=== PATIENT | female | born 1925 | race Caucasian/White ===

== ENCOUNTER 2016-11-08 12:12 | Inpatient (IN) | payer MEDICARE, BC ==
--- NOTE | ~2016-11-08 | CR72 ---
[facility] A Service of [facility] & [facility] RADIOLOGY TEXT RESULTS PATIENT: BASIL DEAN LOCATION: [place] [address] : [birth year] UNIT #: [id number] AGE: [address]: Leticia Bernstein MD SEX: F ORDER DR: [id number] [facility] [address] [place], [place] [address] [id number] MR#: [id number] Acc #: [id number] NAME: BASIL DEAN. : 1925 SEX: F STUDY DATE/TIME: 11/08/2016 11:11 UNIT: [facility] ROOM: STUDY DESCRIPTION: CR Chest Single View Portable Attending Physician: Fredy Boyd M.D. Ordering Physician: Ed Doctor [id number] [facility] Primary Care Physician: Renée Ramesh M.D. MEDICAL IMAGING REPORT This report is preliminary unless electronic signature is present EXAM Portable chest INDICATIONS 89-year-old female with shortness of breath, weakness for 1 day. COMPARISON 10/29/2016 FINDINGS Low-volume inspiration. No acute infiltrate. Heart size stable. Atherosclerotic calcification of the aorta. IMPRESSION No active disease. Dictated by... Giovany Fernandez M.D. THIS IS AN ELECTRONICALLY VERIFIED REPORT Giovany Fernandez M.D. at 11/08/2016 4:52 PM Caroline TD: 11/08/2016 12:00 JOB #: [id number] MEDICAL IMAGING REPORT Page 1 of 1 COPY
--- NOTE | ~2016-11-08 | EKG ---
PATIENT: BASIL DEAN UNIT #: [id number] Ventricular Rate: 73 BPM Atrial Rate: 73 BPM P-R Interval: 142 ms QRS Duration: 68 ms Q-T Interval: 386 ms QTC Calculation(Bezet): 425 ms Calculated R [place]: 61 degrees Calculated T [place]: 103 degrees Diagnosis Line: Normal sinus rhythm Diagnosis Line: Normal ECG Diagnosis Line: When compared with ECG of 13-NOV-2012 16:56, Diagnosis Line: No significant change was found Diagnosis Line: Confirmed by ARIELLA HARMON MD ([id number]) on 11/09/2016 Diagnosis Line: 11:14:25 PM INTERPRETING MD: EDEN VALENCIA
--- NOTE | ~2016-11-08 | EKG ---
PATIENT: BASIL DEAN UNIT #: [id number] Ventricular Rate: 65 BPM Atrial Rate: 65 BPM P-R Interval: 192 ms QRS Duration: 88 ms Q-T Interval: 422 ms QTC Calculation(Bezet): 438 ms P [place]: 57 degrees Calculated R [place]: 16 degrees Calculated T [place]: 96 degrees Diagnosis Line: Normal sinus rhythm Diagnosis Line: Abnormal QRS-T angle, consider primary T wave Diagnosis Line: abnormality Diagnosis Line: Abnormal ECG Diagnosis Line: When compared with ECG of 08-NOV-2016 10:10, Diagnosis Line: (unconfirmed) Diagnosis Line: No significant change was found Diagnosis Line: Confirmed by ARIELLA HARMON MD ([id number]) on 11/09/2016 Diagnosis Line: 11:29:27 PM INTERPRETING MD: EDEN VALENCIA
--- NOTE | ~2016-11-08 | HP ---
Unit #: [id number] #: [id number] Patient: BASIL DEAN [id number] [address] [place], [place] [address] [id number] I MR#: [id number] NAME: BASIL DEAN. ROOM: 548 Age: 89 Sex: F Admission Date: 11/08/2016 : 1925 Attending Physician: Leticia Bernstein M.D. Primary Care Physician: Renée Ramesh M.D. HISTORY AND PHYSICAL CHIEF COMPLAINT Intractable weakness and fatigue. HISTORY OF PRESENT ILLNESS The patient is a pleasant 89-year-old female who basically has been sick for the past one week illness, with some shortness of air, some cough, and some fever over two weeks ago. She presented to see her healthcare provider and was given some Robitussin and managed conservatively. She developed more weakness and difficulty walking. She denied any nausea or vomiting and no chest pain, headache, shortness of breath, or difficulty breathing. She does have a cough on occasion. Workup so far yielded a urinalysis which was positive for nitrites and leukocyte esterase. She states that she has been treated for a urinary tract infection recently. REVIEW OF SYSTEMS She does have a headache, some nausea, positive weakness, and difficulty walking. PAST MEDICAL HISTORY 1. Hypertension. 2. Hypothyroidism. 3. Kidney disease. 4. Coronary artery disease. PAST SURGICAL HISTORY 1. Hysterectomy. 2. Back surgery. 3. Cardiac stents. ALLERGIES CEPHALOSPORINS. SOCIAL HISTORY No tobacco use, alcohol use, or illicit drug use. FAMILY HISTORY Negative. PHYSICAL EXAMINATION GENERAL: She was comfortable but acute on chronically ill. VITAL SIGNS: Blood pressure 121/52, pulse 74, respiratory rate 24, and temperature 98. HEENT: Pupils were equal and reactive to light and accommodation. Unit #: [id number] #: [id number] Patient: BASIL DEAN NECK: Supple without thyromegaly. CARDIOVASCULAR: First and second heart sounds only. transmitted sounds. ABDOMEN: Full. Moves with respiration. Soft, nondistended, and nontender. EXTREMITIES: Mild bilateral lower extremity edema. SKIN: Warm and dry with no rashes. CENTRAL NERVOUS SYSTEM: Alert and oriented x3. Moves all her limbs spontaneously. DIAGNOSTIC STUDIES LABORATORY: Chemistries with glucose of 107, BUN and creatinine 23 and 1, and sodium and potassium 136 and 4.7. CBC with WBC 9, hemoglobin and hematocrit 16.7 and 50, and platelet count of 230,000. Urinalysis showed leukocyte esterase 3+, nitrites positive, protein 1+, and WBCs 100-200. ASSESSMENT AND PLAN 1. Urinary tract infection. She is currently on Zosyn 3.375 grams q.6. Patient does have allergy to cephalosporins. Urine culture is pending at this time. 2. Intractable weakness and fatigue. 3. Atypical chest pain. Will get one more set of cardiac markers. Cardiac markers x2 sets negative at this time. 4. Deep venous thrombosis prophylaxis. Put her on sequential compression devices while in bed. For gastrointestinal prophylaxis, put her on Protonix. 5. Repeat a CBC, BMP, and EKG in the morning. 1. Dictated by Leticia Bernstein M.D. OO/am TD: 11/08/2016 20:45 JOB #: [id number] HISTORY AND PHYSICAL Page 1 of 1 X Leticia Bernstein MD HISTORY AND PHYSICAL
--- NOTE | ~2016-11-08 | DS ---
Unit #: [id number] #: [id number] Patient: BASIL DEAN [id number] [address] [address] [id number] I MR#: [id number] NAME: BASIL DEAN. ROOM: 548 Age: 89 Sex: F Admission Date: 11/08/2016 : 1925 Discharge Date: 11/11/2016 Attending Physician: Leticia Bernstein M.D. Primary Care Physician: Renée Ramesh M.D. DISCHARGE SUMMARY FINAL DIAGNOSES 1. Urinary tract infection secondary to Escherichia coli. 2. Intractable weakness. SECONDARY DIAGNOSES 1. Hypertension. 2. Hypothyroidism. 3. Kidney disease. 4. Coronary artery disease. HOSPITAL COURSE The patient is a pleasant, 89-year-old female who was admitted for extreme fatigue and intractable weakness. She is admitted for chest pain for which troponins were negative. She had a UTI which grew E. coli for which she was treated with Zosyn. Initially, we felt that she was a little septic as she had an elevated lactic acid level. She was evaluated and suitable and stable for discharge. I will discharge the patient in stable condition. MEDICATION ON DISCHARGE 1. Norvasc 5 mg p.o. daily. 2. Toprol XL 50 mg p.o. daily. 3. Lasix 20 mg p.o. daily. 4. Zestril 10 mg p.o. daily. 5. Plavix 75 mg p.o. daily. 6. Protonix 40 mg p.o. daily. 7. Augmentin 875 mg p.o. b.i.d. for seven days. 8. Florastor 250 mg p.o. b.i.d. Time spent coordinating discharge about 22 minutes. Dictated by... Arielle Bloom TD: 11/11/2016 09:57 JOB #: [id number] Unit #: [id number] #: [id number] Patient: BASIL DEAN DISCHARGE SUMMARY Page 1 of 1 X Leticia Bernstein MD DISCHARGE SUMMARY
[2016-11-08 11:53] LABS: POC - CKMB 1.2 ng/mL (0.0-7.9); POC - TROPONIN <0.05 ng/mL (<=0.05)
[~2016-11-08 12:12] MED LIST: AGGRENOX PO; ANTIVERT PO; ASPIRIN PO; ASPIRIN81 M1 PO; BIAXIN PO; LISINOPRIL PO; LOTREL 5/10 MG1 CAP PO; MEDROL4 MG/DOSE- PO; PLAVIX PO; TOPROL XL PO; ULTRAM PO
[2016-11-08 12:23] LABS: BASOPHIL% 0.1 % (0-2.5); EOSINOPHIL% 0.4 % (0.0-7.0); HEMOGLOBIN 16.7 gm/dL (12.0-16.0); LYMPHOCYTE# 2.1 X10e3 (1.0-3.5); LYMPHOCYTE% 23.3 % (17.0-45.0); MEAN CELL VOLUME 85.5 FL (83-96); MEAN CORPUSCULAR HEMOGLOBIN 28.6 PG (28-34); MEAN CORPUSCULAR HGB CONC 33.5 g/dL (30-36); MEAN PLATELET VOLUME 8.7 FL (6.5-11.5); MONOCYTE# 0.9 X10e3 (0-1.0); MONOCYTE% 10.2 % (3.0-12.0); NEUTROPHIL# 5.9 X10e3 (1.5-7.1); PLATELET COUNT 230 X10e3 (140-420); RED BLOOD COUNT 5.85 X10e (3.90-5.30); RED CELL DISTRIBUTION WIDTH 13.9 % (11.0-15.5)
[2016-11-08 12:24] LABS: DIFF IND YES
[2016-11-08] MEDS ORDERED: TOPROL XL 50 MG50 MG PO (12:42)
[2016-11-08] MEDS ORDERED: CLOPIDOGREL75 MG PO (12:43)
[2016-11-08] MEDS ORDERED: AMLODIPINE BESYL5 MG PO (12:43)
[2016-11-08] MEDS ORDERED: LISINOPRIL10 MG PO (12:43)
[2016-11-08] MEDS ORDERED: LASIX20 MG PO (12:44)
[2016-11-08 12:45] LABS: URINE SOURCE CLEAN CATCH
[2016-11-08 13:02] LABS: ALBUMIN SERUM 4.3 g/dL (3.5-5.0); BILIRUBIN, DIRECT 0.2 mg/dL (0.0-0.2); BILIRUBIN,INDIRECT 0.7 mg/dL (0.0-0.9); BILIRUBIN,TOTAL 0.9 mg/dL (0.2-2.0); CALCIUM SERUM 9.5 mg/dL (8.4-10.2); GLOM FILT RATE Estimated 49.9 mL/min (>60); POTASSIUM 4.7 mmol/L (3.5-5.1); PROTEIN TOTAL SERUM 7.6 g/dL (6.0-8.3)
[2016-11-08 13:05] LABS: URINE APPEARANCE CLOUDY; URINE BLOOD 1+ (NEG); URINE COLOR YELLOW; URINE GLUCOSE NORM (NORM); URINE KETONE NEG (NEG); URINE LEUKOCYTE ESTERASE 3+ (NEG); URINE NITRATE POS (NEG); URINE PROTEIN 1+ (NEG); URINE UROBILINOGEN NORM (NORM)
[2016-11-08 13:08] LABS: INFLUENZA A NEG (NEG); INFLUENZA B NEG (NEG)
[2016-11-08 13:11] LABS: PLATELET ESTIMATE NORMAL (NORMAL); RBC NORMAL YES
[2016-11-08 13:14] LABS: URINE BILIRUBIN NEG (NEG)
[2016-11-08 13:17] LABS: CULTURE INDICATED? YES; URINE AMORPHOUS SEDIMENT AMORP URATES; URINE BACTERIA AUWI 3+ (NEGATIVE); URINE SQUAMOUS EPITHELIAL CELL FEW /[HPF]; UWBCS1 AUWI 100-200 (0-5)
[2016-11-08 13:49] LABS: POC - CKMB <1.0 ng/mL (0.0-7.9); POC - TROPONIN <0.05 ng/mL (<=0.05)
[2016-11-08 20:34] LABS: CK TOTAL 34 IU/L (26-140)
[2016-11-09 05:41] LABS: HEMATOCRIT 40.9 % (35.0-45.0); MEAN CORPUSCULAR HEMOGLOBIN 28.5 PG (28-34); MEAN CORPUSCULAR HGB CONC 33.6 g/dL (30-36); MEAN PLATELET VOLUME 8.1 FL (6.5-11.5); RED BLOOD COUNT 4.81 X10e (3.90-5.30); RED CELL DISTRIBUTION WIDTH 13.9 % (11.0-15.5); WHITE BLOOD COUNT 6.6 X10e3 (4.0-10.5)
[2016-11-09 05:47] LABS: HEMOGLOBIN 13.7 gm/dL (12.0-16.0)
[2016-11-09 06:16] LABS: CALCIUM SERUM 8.6 mg/dL (8.4-10.2); GLOM FILT RATE Estimated 49.9 mL/min (>60); MAGNESIUM 2.1 mg/dL (1.6-3.0); PHOSPHOROUS 4.4 mg/dL (2.5-4.6); POTASSIUM 4.5 mmol/L (3.5-5.1)
[2016-11-10 09:04] LABS: HEMATOCRIT 43.4 % (35.0-45.0); HEMOGLOBIN 14.2 gm/dL (12.0-16.0); MEAN CELL VOLUME 86.8 FL (83-96); MEAN CORPUSCULAR HEMOGLOBIN 28.4 PG (28-34); MEAN CORPUSCULAR HGB CONC 32.8 g/dL (30-36); WHITE BLOOD COUNT 6.4 X10e3 (4.0-10.5)
[2016-11-10 09:39] LABS: BUN/CREATININE RATIO 28.88; CALCIUM SERUM 8.5 mg/dL (8.4-10.2); CREATININE SERUM 0.9 mg/dL (0.6-1.4); GLOM FILT RATE Estimated 56.7 mL/min (>60); POTASSIUM 4.1 mmol/L (3.5-5.1)
== END 2016-11-11 20:07 | DRG 690 ==
LOC: CED 12:12 → CEDOF 13:50 → C5B 15:50
PROVIDERS: Emergency Medicine; Family Medicine
DX: N39.0 Urinary tract infection, site not specified (principal); I10 Essential (primary) hypertension; B96.20 Unspecified Escherichia coli [E. coli] as the cause of diseases classified elsewhere; R53.1 Weakness; E03.9 Hypothyroidism, unspecified; I25.10 Atherosclerotic heart disease of native coronary artery without angina pectoris; N28.9 Disorder of kidney and ureter, unspecified; R07.89 Other chest pain; Z90.710 Acquired absence of both cervix and uterus; Z88.1 Allergy status to other antibiotic agents
CPT/HCPCS: 36415; 71010; 80048; 80076; 81003; 82550; 82553; 83605; 83735; 83880; 84100; 84484; 85025; 85027; 87086; 87088; 87186; 87804; 93005; 97110; 97116; 97162; 97166; 97530; 97535; 99285; G8978-GP; G8979-GP; G8987-GO; G8988-GO; J2543